=== PATIENT | female | born 2000 | race Caucasian/White ===

== ENCOUNTER 2023-05-14 18:45 | Observation (INO) | payer MEDICAID, OTHER ==
[~2023-05-14] VITALS: Ht 147.3 cm; Wt 65.8 kg
[2023-05-14] MEDS ORDERED: PREN-176 PO (20:30)
[2023-05-14] MEDS ORDERED: ACETAMINOPHEN 500MG TABLET PO NR (21:00)
== END 2023-05-14 22:20 | disposition home or self-care (01) ==
LOC: 8 EST LDRP 18:45
PROVIDERS: ADMIT Specialist; ATTEND Specialist
DX: O26.892 Other specified pregnancy related conditions, second trimester (principal); R10.31 Right lower quadrant pain; Z3A.23 23 weeks gestation of pregnancy
CPT/HCPCS: 59025; 99281; G0378